=== PATIENT | female | born 1995 | race African-American/Black ===

== ENCOUNTER 2016-11-25 17:57 | Emergency (ER) | payer SELFPAY ==
[~2016-11-25] VITALS: Ht 160 cm; Wt 445.0 kg
[2016-11-25] MEDS ORDERED: LIDOCAINE HCL 1% 20ML VIAL (Pyxis) INJ MC ONE (20:15)
[2016-11-25] MEDS ORDERED: BACITRACIN ZINC OINT UDPKT TOP ONE (20:15)
[2016-11-25] MEDS ORDERED: TETANUS, DIPHTHERIA, PERTUSSIS VAC/PF 0.5ML (>7YR OLD) IM ONE (20:15)
[2016-11-25 20:25] LABS: BASOPHILS % 0.5 % (0.0-2.0); EOSINOPHILS % 0.2 % (0.0-5.0); HEMATOCRIT. 42.5 % (36.0-48.0); HEMOGLOBIN. 14.2 g/dL (12.0-16.0); LYMPHOCYTES % 19.8 % (20.0-50.0); MEAN CORPUSCULAR HEMOGLOBIN 26.8 pg (28.0-32.0); MEAN CORPUSCULAR VOLUME 80.5 fL (81.0-99.0); MEAN PLATELET VOLUME 7.5 fl (7.4-10.4); MONOCYTES % 5.1 % (2.0-8.0); NEUTROPHILS % 74.4 % (40.0-76.0); PLATELET 317 x1000/uL (130-400); RED BLOOD CELL COUNT 5.29 mill/uL (4.2-5.4)
[2016-11-25 20:27] LABS: CHLORIDE 104 mEq/L (98-107)
[2016-11-25 20:28] LABS: CARBON DIOXIDE 24 mEq/L (21-32)
[2016-11-25 20:32] LABS: ETHANOL BLOOD < 10 mg/dL
[2016-11-25] MEDS ORDERED: LORAZEPAM 1MG TABLET PO ONE (20:45)
[2016-11-25 20:51] LABS: CLARITY URINE CLOUDY (CLEAR); COLOR URINE YELLOW (YELLOW); GLUCOSE URINE NEGATIVE (NEGATIVE); KETONES URINE 2+ (NEGATIVE); LEUKOCYTE ESTERASE URINE 2+ (NEGATIVE); NITRITE URINE POSITIVE (NEGATIVE); OCCULT BLOOD URINE NEGATIVE (NEGATIVE); PH URINE 6.5 (4.5-8.0); PROTEIN URINE NEGATIVE (NEGATIVE); UROBILINOGEN URINE 0.2 E.U./dL (0.2-1.0)
[2016-11-25 21:03] LABS: *BARBITURATES SCREEN URINE NEGATIVE (NEGATIVE); *BENZODIAZEPINES SCREEN URINE NEGATIVE (NEGATIVE); *COCAINE SCREEN URINE NEGATIVE (NEGATIVE); CANNABINOID URINE SCREEN NEGATIVE (NEGATIVE); METHADONE URINE SCREEN NEGATIVE (NEGATIVE); OPIATES URINE SCREEN NEGATIVE (NEGATIVE); PHENCYCLIDINE URINE SCREEN NEGATIVE (NEGATIVE)
[2016-11-25 21:04] LABS: *AMPHETAMINES SCREEN URINE PRESUMTIVE POSITIVE (NEGATIVE)
[2016-11-25 21:50] VITALS: BP 118/77
== END 2016-11-25 22:15 | disposition home or self-care (01) ==
LOC: ER 19:52
DX: S60.410A Abrasion of right index finger, initial encounter (principal); S60.412A Abrasion of right middle finger, initial encounter; S60.416A Abrasion of right little finger, initial encounter; W25.XXXA Contact with sharp glass, initial encounter; Y93.89 Activity, other specified; Y92.488 Other paved roadways as the place of occurrence of the external cause; E16.2 Hypoglycemia, unspecified; F15.10 Other stimulant abuse, uncomplicated; R03.0 Elevated blood-pressure reading, without diagnosis of hypertension; Z71.51 Drug abuse counseling and surveillance of drug abuser
CPT/HCPCS: 36415; 80053; 80305; 81001; 81025; 82962; 85025; 90471; 90715; 96372; 99284; G0482; J3490; X7700; Z7610